=== PATIENT | male | born 1990 | race African-American/Black ===

== ENCOUNTER 2022-03-05 04:09 | Emergency (ER) | payer OTHER ==
[~2022-03-05] VITALS: Ht 185.4 cm; Wt 99.8 kg
[2022-03-05] MEDS ORDERED: IBUP800T27 PO (08:44)
[2022-03-05 08:46] VITALS: BP 130/88
== END 2022-03-05 09:00 | disposition home or self-care (01) ==
LOC: ER 04:09
DX: S93.402A Sprain of unspecified ligament of left ankle, initial encounter (principal); F17.210 Nicotine dependence, cigarettes, uncomplicated; W18.39XA Other fall on same level, initial encounter; Y93.61 Activity, american tackle football; Y92.39 Other specified sports and athletic area as the place of occurrence of the external cause; Y99.8 Other external cause status
CPT/HCPCS: 73600